=== PATIENT | female | born 1955 | race Caucasian/White ===

== ENCOUNTER 2016-11-23 07:03 | Emergency (ER) | payer BC ==
--- NOTE | 2016-11-23 07:20 | UC ---
Complaint Female HPI - HPI Summary HPI Summary: 61 year old with increased frequency , burning with urination and no fever but did feel warm last night. took azo yesterday which helped. - History Of Current Complaint Stated Complaint: URINARY COMPLAINT Time Seen by Provider: 11/23/16 07:19 Hx Obtained From: Patient ?: No Onset/Duration: Gradual Onset Timing: Constant Severity Initially: Mild Severity Currently: Moderate Character: Sharp Alleviating Factor(s): Nothing Associated Signs And Symptoms: Positive: Negative Related Hx: Similar Episode/Dx as: - Allergies/Home Medications Allergies/Adverse Reactions: Allergies Allergy/AdvReac Type Severity Reaction Status Date / Time No Known Allergies Allergy Verified 11/23/16 07:26 Home Medications: Home Medications Cranberry-Vitamin C-Probiotic [Azo Cranberry 250-30 mg] 1 tab PO ONCE PRN [History Confirmed 11/23/16] Gabapentin CAP(*) [Neurontin 100 mg CAP(*)] 500 mg PO QPM 11/23/16 [History Confirmed 11/23/16] PMH/Surg Hx/FS Hx/Imm Hx Previously Healthy: Yes - Family History Known Family History: Positive: None - Social History Occupation: Employed Full-time - [employer] Lives: With Family Review of Systems Genitourinary: Dysuria, Frequency, Urgency All Other Systems Reviewed And Are Negative: Yes Physical Exam Triage Information Reviewed: Yes Appearance: Well-Appearing, No Pain Distress, Well-Nourished Vital Signs Reviewed: Yes Eye Exam: Normal ENT Exam: Normal Dental Exam: Normal Neck exam: Normal Neck: Positive: 1 Respiratory Exam: Normal Cardiovascular Exam: Normal Abdominal Exam: Normal Abdomen Description: Negative: CVA Tenderness (R), CVA Tenderness (L) Musculoskeletal Exam: Normal Neurological Exam: Normal Psychological Exam: Normal Skin Exam: Normal Complaint Female Dx - Differential Dx/Diagnosis Differential Diagnosis/HQI/PQRI: Urinary Tract Infection Provider Diagnoses: UTI Discharge - Discharge Plan Condition: Good Disposition: HOME Prescriptions: Sulfamethox/Trimethoprim DS* [Bactrim DS 800/160 TAB*] 1 tab PO BID #10 tab Patient Education Materials: Urinary Tract Infection in Women (ED) Referrals: Cara Arriaga MD [Primary Care Provider] - 3 Days
[2016-11-23 07:43] VITALS: BP 136/68
== END 2016-11-23 08:06 | disposition home or self-care (01) ==
LOC: UCCORT 07:03
DX: N39.0 Urinary tract infection, site not specified (principal)
CPT/HCPCS: 81003; 87086; 99212; G0463

== ENCOUNTER 2016-12-02 07:18 | Emergency (ER) | payer BC ==
--- NOTE | 2016-12-02 07:55 | UC ---
Complaint Female HPI - HPI Summary HPI Summary: URINARY FREQUENCY X 3 DAYS MILD DYSURIA, NO FEVER, NO CHILLS, NO FLANK PAIN - History Of Current Complaint Chief Complaint: UCGU Stated Complaint: URINARY COMPLAINT Time Seen by Provider: 12/02/16 07:37 Hx Obtained From: Patient Onset/Duration: Gradual Onset, Lasting Days - 3, Still Present Timing: Constant Severity Initially: Moderate Severity Currently: Moderate Character: Burning Aggravating Factor(s): Urination Associated Signs And Symptoms: Negative: Fever, Back Pain, Vaginal Bleeding/ Discharge, Vaginal Discharge, Nausea, Vomiting(# Of Episodes =), Genital Swelling, Genital Blisters, Retained Foregin Body (Specify) Related Hx: Similar Episode/Dx as: - UTI ONE WEEK AGO - Allergies/Home Medications Allergies/Adverse Reactions: Allergies Allergy/AdvReac Type Severity Reaction Status Date / Time No Known Allergies Allergy Verified 12/02/16 07:25 Home Medications: Home Medications Phenazopyridine HCl [Azo Urinary Pain Relief] 95 mg PO ONCE PRN 12/02/16 [ History Confirmed 12/02/16] PMH/Surg Hx/FS Hx/Imm Hx Previously Healthy: Yes - Surgical History Surgical History: Yes Surgery Procedure, Year, and Place: tonsils - Family History Known Family History: Positive: None Negative: Diabetes - Social History Alcohol Use: Weekly Alcohol Amount: q other day Substance Use Type: None Smoking Status (MU): Never Smoked Tobacco Review of Systems Constitutional: Negative Skin: Negative Eyes: Negative ENT: Negative Respiratory: Negative Cardiovascular: Negative Gastrointestinal: Negative Genitourinary: Dysuria, Frequency All Other Systems Reviewed And Are Negative: Yes Physical Exam Triage Information Reviewed: Yes Appearance: Well-Appearing, No Pain Distress, Well-Nourished Vital Signs: Initial Vital Signs Temp 97.1 F 12/02/16 07:27 Pulse 72 12/02/16 07:27 Resp 16 12/02/16 07:27 BP 135/87 12/02/16 07:27 Pulse Ox 98 12/02/16 07:27 Vital Signs Reviewed: Yes Eyes: Positive: Conjunctiva Clear ENT: Positive: Normal ENT inspection, Hearing grossly normal, Pharynx normal Neck exam: Normal Neck: Positive: Supple, Nontender, No Lymphadenopathy Respiratory: Positive: Chest non-tender, Lungs clear, Normal breath sounds Cardiovascular: Positive: RRR, No Murmur, Pulses Normal Abdomen Description: Positive: Nontender, Soft. Negative: CVA Tenderness (R), CVA Tenderness (L), Distended, Guarding Bowel Sounds: Positive: Present Skin Exam: Normal Complaint Female Dx - Differential Dx/Diagnosis Provider Diagnoses: UTI Discharge - Discharge Plan Condition: Stable Disposition: HOME Prescriptions: Sulfamethox/Trimethoprim DS* [Bactrim DS 800/160 TAB*] 1 tab PO BID #14 tab Patient Education Materials: Urinary Tract Infection in Women (ED) Referrals: Cara Arriaga MD [Primary Care Provider] - If Needed
[2016-12-02 08:00] VITALS: BP 135/87
== END 2016-12-02 07:57 | disposition home or self-care (01) ==
LOC: UCCORT 07:18
DX: N39.0 Urinary tract infection, site not specified (principal)
CPT/HCPCS: 81003; 87086; 99212; G0463

== ENCOUNTER 2016-12-08 08:35 | Emergency (ER) | payer BC ==
[2016-12-08 08:51] VITALS: BP 136/94
--- NOTE | 2016-12-08 09:11 | UC ---
Complaint Female HPI - HPI Summary HPI Summary: Patient has had urinary symptoms on and off for the past 3-4 weeks, it seems to be exacerbated by sex. Buring with urination, some increase in urgency, denies fever, back pain or lower abdominal pain. - History Of Current Complaint Chief Complaint: UCGU Stated Complaint: RECHECK UTI Time Seen by Provider: 12/08/16 08:43 Hx Obtained From: Patient ?: No Onset/Duration: Gradual Onset, Lasting Weeks Timing: Constant Severity Initially: Mild Severity Currently: Moderate Character: Burning Aggravating Factor(s): [place], Urination - Risk Factors Ectopic Risk Factor: Negative Ovarian Torsion Risk Factor: Negative - Allergies/Home Medications Allergies/Adverse Reactions: Allergies Allergy/AdvReac Type Severity Reaction Status Date / Time No Known Allergies Allergy Verified 12/08/16 08:51 PMH/Surg Hx/FS Hx/Imm Hx Previously Healthy: Yes - Surgical History Surgical History: Yes Surgery Procedure, Year, and Place: tonsils - Family History Known Family History: Positive: None Negative: Diabetes - Social History Alcohol Use: Daily Alcohol Amount: 5-10 Substance Use Type: None Smoking Status (MU): Never Smoked Tobacco Review of Systems Constitutional: Negative Skin: Negative Eyes: Negative ENT: Negative Respiratory: Negative Cardiovascular: Negative Gastrointestinal: Negative Genitourinary: Dysuria, Hematuria, Frequency, Urgency Motor: Negative Neurovascular: Negative Musculoskeletal: Negative Neurological: Negative Psychological: Negative All Other Systems Reviewed And Are Negative: Yes Physical Exam Triage Information Reviewed: Yes Appearance: Well-Appearing, Well-Nourished, Pain Distress Vital Signs: Initial Vital Signs Temp 97.4 F 12/08/16 08:43 Pulse 67 12/08/16 08:43 Resp 14 12/08/16 08:43 BP 136/94 12/08/16 08:43 Pulse Ox 98 12/08/16 08:43 Vital Signs Reviewed: Yes Eye Exam: Normal ENT Exam: Normal Dental Exam: Normal Neck exam: Normal Respiratory Exam: Normal Cardiovascular Exam: Normal Abdomen Description: Positive: Nontender, CVA Tenderness (R) - neg, CVA Tenderness (L) - neg, Other: - PELVIC: vaginal wall pink, large amount of white discharge, neg cervical motion tenderness, no lesions noted internally or externally. Bowel Sounds: Positive: Present Musculoskeletal Exam: Normal Musculoskeletal: Positive: Strength Intact, ROM Intact, No Edema Neurological Exam: Normal Neurological: Positive: Alert, Muscle Tone Normal Psychological Exam: Normal Skin Exam: Normal Complaint Female Dx - Course Course Of Treatment: hx obtained, exam performed ,meds reviewed, pelvic exam performed, treated for yeast and UTI, educated on sexual health. urology referral given - Differential Dx/Diagnosis Differential Diagnosis/HQI/PQRI: Pelvic Inflammatory Disease, Renal Colic, Ureteral Stone, Urinary Tract Infection Provider Diagnoses: UTI. Vaginitis Discharge - Discharge Plan Condition: Stable Disposition: HOME Prescriptions: Cephalexin CAP* [Keflex CAP*] 500 mg PO BID #14 cap Fluconazole 150 MG (NF) [Diflucan 150 mg (NF)] 150 mg PO WEEKLY #2 tab Patient Education Materials: Vulvovaginal Candidiasis (ED) Referrals: Cara Arriaga MD [Primary Care Provider] - Yuan Salgado MD,Juan Rivers [Medical Doctor] - Additional Instructions: 1. Take the medication as prescribed. 2. Increase your fluid intake. 3. Use the natural based lubricant for intercourse to prevent irritation,. 4. I am giving you a referral to urology if symptoms do not resolve.
--- NOTE | 2016-12-10 07:17 | UC ---
Progress - Progress Note Progress Note: notify patient she has both a UTI and BV final urine culture is pending flagyl ERxed
== END 2016-12-08 09:49 | disposition home or self-care (01) ==
LOC: UCCORT 08:35
DX: N39.0 Urinary tract infection, site not specified (principal); N76.0 Acute vaginitis
CPT/HCPCS: 81003; 87077; 87086; 87186; 87480; 87491; 87510; 87591; 87661; 99212; G0463

== ENCOUNTER 2018-01-29 09:29 | Emergency (ER) | payer BC ==
--- NOTE | 2018-01-29 11:43 | UC ---
General HPI - HPI Summary HPI Summary: States she has been under pressure for some time due to work and caretaking of her mother. She went to an event where she drank much coffee and had alcohol yesterday night. She states she woke up today drenched in sweat feeling some nausea and dizziness and noticed blood around her lips and ear. She also felt pain on her tongue and noticed a laceration on it. Patient has history of possible seizure disorder and was taking gabapentin but was stopped months ago due to side effects; patient also states after d/c there were no recurrences. - History of Current Complaint Chief Complaint: UCDizziness Stated Complaint: LIGHT HEADEDNESS, SWEATS, ORAL Time Seen by Provider: 01/29/18 10:25 Hx Obtained From: Patient Onset/Duration: Sudden Onset, Lasting Hours Pain Intensity: 4 - Allergy/Home Medications Allergies/Adverse Reactions: Allergies Allergy/AdvReac Type Severity Reaction Status Date / Time No Known Allergies Allergy Verified 01/29/18 10:04 Home Medications: Home Medications Hydrochlorothiazide TAB* [Hydrodiuril TAB*] 25 mg PO DAILY 01/29/18 [History Confirmed 01/29/18] PMH/Surg Hx/FS Hx/Imm Hx Previously Healthy: Yes Cardiovascular History: Hypertension Neurological History: Seizures - Surgical History Surgical History: Yes Surgery Procedure, Year, and Place: tonsils - Family History Known Family History: Positive: Cardiac Disease Negative: Diabetes - Social History Alcohol Use: Weekly Alcohol Amount: 7 Substance Use Type: None Smoking Status (MU): Never Smoked Tobacco Review of Systems Constitutional: Fatigue Eyes: Negative ENT: Negative Respiratory: Negative Cardiovascular: Negative Gastrointestinal: Negative Genitourinary: Negative Motor: Negative Neurovascular: Negative Musculoskeletal: Negative All Other Systems Reviewed And Are Negative: Yes Physical Exam Triage Information Reviewed: Yes Appearance: Well-Appearing, Well-Nourished, Obese Vital Signs: Initial Vital Signs Temp 99.4 F 01/29/18 09:46 Pulse 87 01/29/18 09:46 Resp 20 01/29/18 09:46 BP 146/95 01/29/18 09:46 Pulse Ox 99 01/29/18 09:46 Vital Signs Reviewed: Yes Eyes: Positive: Conjunctiva Clear ENT: Positive: Hearing grossly normal, Pharynx normal, TMs normal, Uvula midline , Other - laceration lateral aspect right side of tongue approx 1.2cm in length , non bleeding Neck: Positive: Supple, Nontender, No Lymphadenopathy Respiratory: Positive: Chest non-tender, Lungs clear, Normal breath sounds, No respiratory distress Abdomen Description: Positive: Nontender, No Organomegaly, Soft, Bruit Bowel Sounds: Positive: Present Musculoskeletal: Positive: Strength Intact, ROM Intact, No Edema Neurological: Positive: Alert, Muscle Tone Normal, Other: - gait wnl, sensory intact, strength 5/5x4, CN II-XII grossly intact, no ataxia, cerebellar function is normal Course/Dx - Course Course Of Treatment: EKG was done shows NSR, Q waves inferior leads, 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 Tongue laceration, possible postictal state after seizure, stop alcohol and caffeine, f/u [facility] with neurologist, advised not to drive or operate machinery. - Differential Dx - Multi-Symptom Provider Diagnoses: Seizure disorder Discharge - Sign-Out/Discharge Documenting (check all that apply): Patient Departure All imaging exams completed and their final reports reviewed: No Studies - Discharge Plan Condition: Stable Disposition: HOME Patient Education Materials: Epilepsy (ED) Forms: *Work Release Additional Instructions: Please make an appointment with your neurologist as soon as possible and follow up on the blood test results you had with your primary care physician. You should abstain from driving and operating machinery. - Billing Disposition and Condition Condition: STABLE Disposition: Home
[2018-01-29 11:52] VITALS: BP 154/95
== END 2018-01-29 11:58 | disposition left against medical advice (07) ==
LOC: UCCORT 09:29
DX: I10 Essential (primary) hypertension (principal); G40.909 Epilepsy, unspecified, not intractable, without status epilepticus
CPT/HCPCS: 93005; 99212; G0463

== ENCOUNTER 2021-03-17 18:40 | Observation (INO) ==
[2021-03-17 19:10] LABS: ABS Eosinophils 0.1 10^3/ul (0-0.6); ABS Lymphocytes 2.4 10^3/ul (1.0-4.8); ABS Monocytes 0.5 10^3/ul (0-0.8); ABS Neutrophils 3.2 10^3/ul (1.5-7.7); Eosinophil % 0.8 %; Hematocrit 42 % (35-47); Hemoglobin 14.5 g/dL (12.0-16.0); Lymphocyte % 38.2 %; Mean Corpuscular HGB Conc 35 g/dL (31-36); Mean Corpuscular Hemoglobin 32 pg (27-31); Mean Corpuscular Volume 91 fL (80-97); Mean Platelet Volume 9.8 fL (7.4-10.4); Platelet Count 237 10^3/uL (150-450); Red Blood Count 4.55 10^6 /uL (3.70-4.87); Red Cell Distribution Width 12 % (10-15); White Blood Count 6.2 10^3/uL (3.5-10.8)
[2021-03-17 19:19] LABS: Activated Partial Thrombo Time 27.2 seconds (26.0-38.0); INR 1.1 (0.86-1.15)
[2021-03-17 19:20] LABS: Albumin 4.3 g/dL (3.2-5.2); Albumin/Globulin Ratio 1.3 (1-3); Globulin 3.2 g/dL (2-4); HDL Cholesterol 53.4 mg/dL; Total Bilirubin 0.6 mg/dL (0.2-1.0); Total Protein 7.5 g/dL (6.4-8.9)
[2021-03-17 19:23] LABS: Troponin I 0.01 ng/mL (<0.03)
[2021-03-17 19:27] LABS: Potassium 2.7 mmol/L (3.5-5.0)
[2021-03-17] MEDS ORDERED: Iohexol 350 (CONTRAST) 500 ML MDV IV ONE (19:35)
[2021-03-17] MEDS: NS 0.9% 1000 ml BAG 1,000 ML IV ONE (20:26)
[2021-03-17] MEDS ORDERED: KCL 20 MEQ/100 ML IVPREMIX 20 MEQ/100 ML BAG IV ONE (20:51)
[2021-03-17] MEDS ORDERED: Potassium Chlor 20 meq TAB.ER PO ONE (20:51)
[2021-03-17] MEDS ORDERED: Ondansetron 4 mg VIAL 2 MG/ML 2 ml VIAL IV PRN (22:30)
[2021-03-17] MEDS: Enoxaparin 40 MG/0.4 ML SYR SUBCUT SCH (22:59)
[2021-03-17] MEDS ORDERED: Lactated Ringers 1000 ml BAG 1,000 ML IV SCH (23:00)
[2021-03-17 23:46] LABS: Prolactin 58.7 ng/mL (1.0-25.0)
[2021-03-17 23:59] LABS: Magnesium 1.9 mg/dL (1.9-2.7)
[2021-03-18 00:49] LABS: Rapid COVID-19 Molecular Undetected (Undetected)
[2021-03-18] MEDS: NS 0.9% 1000 ml BAG 1,000 ML IV ONE (01:53)
[2021-03-18 05:04] LABS: ABS Eosinophils 0.1 10^3/ul (0-0.6); ABS Lymphocytes 2.2 10^3/ul (1.0-4.8); ABS Monocytes 0.6 10^3/ul (0-0.8); ABS Neutrophils 3.2 10^3/ul (1.5-7.7); Eosinophil % 1.2 %; Hematocrit 38 % (35-47); Hemoglobin 13.1 g/dL (12.0-16.0); Lymphocyte % 35.6 %; Mean Corpuscular HGB Conc 35 g/dL (31-36); Mean Corpuscular Hemoglobin 32 pg (27-31); Mean Corpuscular Volume 91 fL (80-97); Mean Platelet Volume 9.2 fL (7.4-10.4); Platelet Count 188 10^3/uL (150-450); Red Blood Count 4.14 10^6 /uL (3.70-4.87); Red Cell Distribution Width 12 % (10-15); White Blood Count 6.1 10^3/uL (3.5-10.8)
[2021-03-18 05:15] LABS: Calcium 8.6 mg/dL (8.6-10.3); Magnesium 1.6 mg/dL (1.9-2.7)
[2021-03-18] MEDS ORDERED: Potassium Chloride LIQUID 20 MEQ/15 ML LIQUID PO ONE (08:07)
[2021-03-18] MEDS ORDERED: Magnesium Sulfate 2 gm BAG 2 GM/50 ML BAG IVPB ONE (08:12)
[2021-03-18] MEDS: LAMOTRIGINE 100 MG PO SCH ×2 (18:34→23:12)
[2021-03-18] MEDS: Enoxaparin 40 MG/0.4 ML SYR SUBCUT SCH (22:57)
[2021-03-19 10:02] LABS: ABS Eosinophils 0.1 10^3/ul (0-0.6); ABS Lymphocytes 1.8 10^3/ul (1.0-4.8); ABS Monocytes 0.5 10^3/ul (0-0.8); ABS Neutrophils 2.8 10^3/ul (1.5-7.7); Hematocrit 42 % (35-47); Hemoglobin 14.4 g/dL (12.0-16.0); Lymphocyte % 33.8 %; Mean Corpuscular HGB Conc 35 g/dL (31-36); Mean Corpuscular Hemoglobin 32 pg (27-31); Mean Corpuscular Volume 93 fL (80-97); Mean Platelet Volume 9.9 fL (7.4-10.4); Platelet Count 204 10^3/uL (150-450); Red Blood Count 4.47 10^6 /uL (3.70-4.87); Red Cell Distribution Width 13 % (10-15); White Blood Count 5.2 10^3/uL (3.5-10.8)
[2021-03-19 10:15] LABS: Calcium 9.5 mg/dL (8.6-10.3); Magnesium 1.8 mg/dL (1.9-2.7); Potassium 3.6 mmol/L (3.5-5.0)
[2021-03-19 12:45] VITALS: BP 127/50
[2021-03-19 23:00] LABS: C Reactive Protein 1.7 mg/L (<8.01)
== END 2021-03-19 11:45 | disposition left against medical advice (07) ==
LOC: MEDTELE 18:40 → ED 18:40 → SUATTDRO 22:31 → MEDTELE 03-18 02:45
PROVIDERS: ADMIT Internal Medicine; ATTEND Internal Medicine

== ENCOUNTER 2021-03-19 17:25 | Inpatient (IN) ==
[2021-03-19 18:21] LABS: Urine Appearance Cloudy; Urine Bilirubin Negative (Negative); Urine Blood Negative (Negative); Urine Color Amber; Urine Glucose Negative (Negative); Urine Ketones Trace (Negative); Urine Nitrite Negative (Negative); Urine Protein 1+(30 mg/dL) (Negative); Urine Specific Gravity 1.024 (1.002-1.030); Urine Urobilinogen Negative (Negative)
[2021-03-19 18:26] LABS: Urine Bacteria 1+ (Absent); Urine Red Blood Cell 3+(>10/hpf) (Absent); Urine Squamous Epithelial Cell Present (Absent); Urine Transitional Epithelial Present (Absent); Urine White Blood Cell 3+(>20/hpf) (Absent)
[2021-03-19 18:41] LABS: Urine Benzodiazepine Screen None Detected (None Detect); Urine Cannabinoids Screen None Detected (None Detect); Urine Opiates Screen None Detected (None Detect)
[2021-03-19 20:10] LABS: Alcohol, S < 13 mg/dL (<13); Salicylate < 2.50 mg/dL (<30)
[2021-03-19 20:11] LABS: Acetaminophen < 15 mcg/mL
[2021-03-20] MEDS ORDERED: LORazepam 2 mg VIAL 1 ml IM ONE (04:41)
[2021-03-20] MEDS ORDERED: Haloperidol 5 mg/ml SDV IV/IM 5 MG/ML AMP IM ONE (04:41)
[2021-03-20] MEDS ORDERED: Lorazepam PYXIS KEY PRN (04:41)
[2021-03-20] MEDS ORDERED: diPHENhydraMINE IV 50 MG/ML 1 ml VIAL (BENADRYL) IM ONE (04:42)
[2021-03-20] MEDS ORDERED: cefTRIAXone VIAL 1,000 MG VIAL IM ONE (05:00)
[2021-03-20 05:50] LABS: ABS Eosinophils 0.1 10^3/ul (0-0.6); ABS Lymphocytes 1.4 10^3/ul (1.0-4.8); ABS Monocytes 0.5 10^3/ul (0-0.8); Eosinophil % 1.9 %; Hematocrit 36 % (35-47); Hemoglobin 12.4 g/dL (12.0-16.0); Lymphocyte % 34.6 %; Mean Corpuscular HGB Conc 35 g/dL (31-36); Mean Corpuscular Hemoglobin 32 pg (27-31); Mean Corpuscular Volume 92 fL (80-97); Mean Platelet Volume 9.8 fL (7.4-10.4); Platelet Count 179 10^3/uL (150-450); Red Blood Count 3.88 10^6 /uL (3.70-4.87); Red Cell Distribution Width 12 % (10-15); White Blood Count 3.9 10^3/uL (3.5-10.8)
[2021-03-20 06:07] LABS: Albumin 3.5 g/dL (3.2-5.2); Albumin/Globulin Ratio 1.5 (1-3); C Reactive Protein 2.27 mg/L (<8.01); Calcium 8.9 mg/dL (8.6-10.3); Globulin 2.4 g/dL (2-4); Potassium 2.8 mmol/L (3.5-5.0); Total Bilirubin 0.4 mg/dL (0.2-1.0); Total Protein 5.9 g/dL (6.4-8.9)
[2021-03-20] MEDS ORDERED: Potassium Chloride LIQUID 20 MEQ/15 ML LIQUID PO ONE (07:23)
[2021-03-20 09:01] LABS: Magnesium 1.8 mg/dL (1.9-2.7)
[2021-03-20] MEDS: KCL 20 MEQ/100 ML IVPREMIX 20 MEQ/100 ML BAG IV SCH ×2 (12:28→14:44)
[2021-03-20] MEDS: Enoxaparin 40 MG/0.4 ML SYR SUBCUT SCH (12:41)
[2021-03-20] MEDS ORDERED: Magnesium Sulfate 2 gm BAG 2 GM/50 ML BAG IVPB ONE (12:45)
[2021-03-20 18:16] LABS: Calcium 8.8 mg/dL (8.6-10.3)
[2021-03-20 18:17] LABS: Potassium 5.4 mmol/L (3.5-5.0)
[2021-03-20 19:29] LABS: Calcium 8.8 mg/dL (8.6-10.3)
[2021-03-20 19:31] LABS: Potassium 5.4 mmol/L (3.5-5.0)
[2021-03-20] MEDS: Thiamine 100 MG/ML 2 ml VIAL 500 MG in NS 0.9% 250 ml 250 ML IV SCH (21:43)
[2021-03-21] MEDS ORDERED: cefTRIAXone 1 gm/50 mL NS BAG 1 GM/50 ML BAG IVPB SCH (06:00)
[2021-03-21 06:07] LABS: ABS Eosinophils 0.1 10^3/ul (0-0.6); ABS Lymphocytes 1.9 10^3/ul (1.0-4.8); ABS Monocytes 0.4 10^3/ul (0-0.8); ABS Neutrophils 1.6 10^3/ul (1.5-7.7); Eosinophil % 2.7 %; Hematocrit 39 % (35-47); Hemoglobin 13.3 g/dL (12.0-16.0); Lymphocyte % 48.7 %; Mean Corpuscular HGB Conc 34 g/dL (31-36); Mean Corpuscular Hemoglobin 32 pg (27-31); Mean Corpuscular Volume 94 fL (80-97); Mean Platelet Volume 9.6 fL (7.4-10.4); Nucleated Red Blood Cells % 0.1; Platelet Count 173 10^3/uL (150-450); Red Cell Distribution Width 13 % (10-15)
[2021-03-21] MEDS: Enoxaparin 40 MG/0.4 ML SYR SUBCUT SCH (06:22)
[2021-03-21 06:25] LABS: Albumin 3.3 g/dL (3.2-5.2); Albumin/Globulin Ratio 1.3 (1-3); Calcium 8.6 mg/dL (8.6-10.3); Globulin 2.5 g/dL (2-4); Magnesium 2.6 mg/dL (1.9-2.7); Potassium 4.5 mmol/L (3.5-5.0); Total Bilirubin 0.4 mg/dL (0.2-1.0); Total Protein 5.8 g/dL (6.4-8.9)
[2021-03-21 07:08] LABS: TSH Ultra Thyroid Stim Horm 2.5 mcIU/mL (0.34-5.60)
[2021-03-21] MEDS: Thiamine 100 MG/ML 2 ml VIAL 500 MG in NS 0.9% 250 ml 250 ML IV SCH ×3 (10:14→20:46)
[2021-03-22] MEDS: Enoxaparin 40 MG/0.4 ML SYR SUBCUT SCH (05:59)
[2021-03-22 06:28] LABS: Hematocrit 40 % (35-47); Hemoglobin 13.4 g/dL (12.0-16.0); Mean Corpuscular HGB Conc 34 g/dL (31-36); Mean Corpuscular Hemoglobin 32 pg (27-31); Mean Corpuscular Volume 94 fL (80-97); Mean Platelet Volume 9.6 fL (7.4-10.4); Platelet Count 192 10^3/uL (150-450); Red Cell Distribution Width 13 % (10-15); White Blood Count 4.4 10^3/uL (3.5-10.8)
[2021-03-22 06:44] LABS: Calcium 8.9 mg/dL (8.6-10.3); Magnesium 2.3 mg/dL (1.9-2.7); Potassium 4.1 mmol/L (3.5-5.0)
[2021-03-22] MEDS: Thiamine 100 MG/ML 2 ml VIAL 500 MG in NS 0.9% 250 ml 250 ML IV SCH ×3 (08:47→21:19)
[2021-03-23] MEDS: Enoxaparin 40 MG/0.4 ML SYR SUBCUT SCH ×2 (06:38→08:25)
[2021-03-23] MEDS ORDERED: LORazepam 2 mg VIAL 1 ml IV PUSH PRN (08:22)
[2021-03-23] MEDS ORDERED: Lorazepam PYXIS KEY PRN (08:22)
[2021-03-23] MEDS ORDERED: Haloperidol 5 mg/ml SDV IV/IM 5 MG/ML AMP ONE (08:24)
[2021-03-23] MEDS: Haloperidol 5 mg/ml SDV IV/IM 5 MG/ML AMP IV SLOW PU PRN (08:25)
[2021-03-23] MEDS: Thiamine 100 MG/ML 2 ml VIAL 500 MG in NS 0.9% 250 ml 250 ML IV SCH ×2 (08:27→14:23)
[2021-03-24] MEDS: Haloperidol 5 mg/ml SDV IV/IM 5 MG/ML AMP IV SLOW PU PRN (01:08)
[2021-03-24 06:56] LABS: Albumin 3.8 g/dL (3.2-5.2); Albumin/Globulin Ratio 1.4 (1-3); Calcium 9.3 mg/dL (8.6-10.3); Globulin 2.7 g/dL (2-4); Magnesium 2.3 mg/dL (1.9-2.7); Potassium 3.5 mmol/L (3.5-5.0); Total Bilirubin 0.4 mg/dL (0.2-1.0); Total Protein 6.5 g/dL (6.4-8.9)
[2021-03-24] MEDS ORDERED: Cyanocobalamin INJ 1,000 MCG/ML VIAL 1 ML VIAL IM ONE (08:22)
[2021-03-24] MEDS: Enoxaparin 40 MG/0.4 ML SYR SUBCUT SCH (08:24)
[2021-03-24] MEDS ORDERED: Thiamine 100 MG/ML 2 ml VIAL 250 MG in NS 0.9% 100 ml BAG 100 ML IV SCH (18:00)
[2021-03-24] MEDS ORDERED: levETIRAcetam 1000MG IVPREMIX 1,000 MG/100 ML BAG IVPB ONE (20:18)
[2021-03-25] MEDS: Enoxaparin 40 MG/0.4 ML SYR SUBCUT SCH (11:26)
[2021-03-25] MEDS ORDERED: Gadoteridol (CONTRAST) 279.3 MG/ML 10 ML IV ONE (15:43)
[2021-03-25 16:11] VITALS: BP 88/52
== END 2021-03-25 20:20 | disposition home or self-care (01) | DRG 751 ==
LOC: ED 17:25 → MED 17:25 → SUATTDRO 03-20 01:13 → MED 03-20 17:27 → SUATTDRO 03-22 12:58 → MED 03-23 08:14
PROVIDERS: ADMIT Internal Medicine; ATTEND Internal Medicine